=== PATIENT | male | born 1975 | race Caucasian/White ===

== ENCOUNTER 2018-08-26 06:40 | Emergency (ER) | payer SELFPAY ==
[~2018-08-26] VITALS: Ht 167.6 cm; Wt 66.7 kg
[2018-08-26 06:46] VITALS: Ht 167.6 cm; Wt 66.7 kg
[2018-08-26 09:06] VITALS: BP 136/96
== END 2018-08-26 09:06 | disposition home or self-care (01) ==
LOC: ED 06:40
DX: F15.90 Other stimulant use, unspecified, uncomplicated (principal)
CPT/HCPCS: J2060